=== PATIENT | male | born 1995 | race Caucasian/White ===

== ENCOUNTER 2021-07-01 19:48 | Emergency (ER) | payer OTHER ==
[2021-07-01] MEDS ORDERED: IBUPROFEN600 MG PO (22:28)
== END 2021-07-01 22:38 | disposition home or self-care (01) ==
LOC: ER1 19:48
DX: S06.0X0A Concussion without loss of consciousness, initial encounter (principal); S33.5XXA Sprain of ligaments of lumbar spine, initial encounter; V49.3XXA Car occupant (driver) (passenger) injured in unspecified nontraffic accident, initial encounter
CPT/HCPCS: 70450; 71046; 72125; 72131; 99284

== ENCOUNTER 2022-01-07 08:57 | Emergency (ER) | payer OTHER ==
[~2022-01-07 08:57] MED LIST: IBUPROFEN600 MG PO
[2022-01-07 09:39] LABS: HEMOGLOBIN 15.3 gm/dl (14.0-17.5); RED BLOOD COUNT 4.96 M/UL (4.20-5.50); WHITE BLOOD COUNT 8.5 K/UL (4.5-11.0)
[2022-01-07 10:02] LABS: BUN/CREATININE RATIO 15 (0-10)
[2022-01-07] MEDS ORDERED: CYCLOBENZAPRINE10 MG PO (10:40)
== END 2022-01-07 10:55 | disposition home or self-care (01) ==
LOC: ER1 08:57
PROVIDERS: Physician Assistant
DX: S29.012A Strain of muscle and tendon of back wall of thorax, initial encounter (principal); F17.200 Nicotine dependence, unspecified, uncomplicated; X58.XXXA Exposure to other specified factors, initial encounter
CPT/HCPCS: 71046; 80053; 81001; 85025; 99284